=== PATIENT | female | born 1990 | race Caucasian/White ===

== ENCOUNTER 2021-04-13 18:58 | Emergency (ER) | payer OTHER ==
[~2021-04-13] VITALS: Ht 167.6 cm; Wt 68.2 kg
[2021-04-13 20:21] LABS: COVID AG,FIA SOURCE NASOPHARYNGEAL
[2021-04-13 20:31] VITALS: BP 122/70
== END 2021-04-13 21:38 | disposition home or self-care (01) ==
LOC: EMS 19:04
DX: J02.9 Acute pharyngitis, unspecified (principal); R49.0 Dysphonia; Z20.822 Contact with and (suspected) exposure to COVID-19
CPT/HCPCS: 87426; 87430; 99283; U0003